=== PATIENT | female | born 1970 | race Caucasian/White ===

== ENCOUNTER 2017-06-02 08:30 | Emergency (ER) | payer MEDICAID ==
[~2017-06-02] VITALS: Ht 152.4 cm; Wt 45.9 kg
[~2017-06-02 08:30] MED LIST: EST1T PO; GABA-532 PO; HYDR-3686 PO; IBUP-1985 PO; LAMO100T2 PO; LORA0.5T PO; MIRT15TA PO; OLAN2.5T3 PO; PRAZ1CAP5 PO; VENL-191 PO
[2017-06-02 09:11] LABS: BASOPHILS % (AUTO) 0.4 % (0-1); EOSINOPHILS # (AUTO) 0.2 X10'3 (0-0.9); EOSINOPHILS % (AUTO) 2.8 % (0-6); HEMATOCRIT 40.6 % (35.0-45.0); HEMOGLOBIN 13.9 g/dl (12.0-16.0); LYMPHOCYTES % (AUTO) 24.6 % (21-51); MEAN CORPUSCULAR HGB CONC 34.3 % (33.0-36.5); MEAN CORPUSCULAR VOLUME 90.3 FL (78-98); MEAN PLATELET VOLUME 8.1 FL (7.4-10.4); MONOCYTES # (AUTO) 0.7 X10'3 (0-0.9); MONOCYTES % (AUTO) 8.3 % (2-12); NEUTROPHILS # (AUTO) 5.1 X10'3 (1.8-7.7); NEUTROPHILS % (AUTO) 63.9 % (42-75); PLATELET COUNT 286 X10'3 (140-440); RED BLOOD COUNT 4.49 X10'6 (4.20-5.60); WHITE BLOOD COUNT 8.1 X10'3 (4.5-11.0)
[2017-06-02] MEDS ORDERED: pantoprazole 40mg Tablet.DR PO STA (09:14)
[2017-06-02] MEDS ORDERED: ondansetron 4mg rapidly disintigrating tab PO ONE (09:15)
[2017-06-02] MEDS ORDERED: diphenhydrAMINE 25mg capsule PO ONE (09:15)
[2017-06-02] MEDS ORDERED: mag hydrox/Alum hydrox/simeth 30ml oral suspension PO ONE (09:15)
[2017-06-02] MEDS ORDERED: LIDOcaine Viscous 15ml cup MM ONE (09:15)
[2017-06-02 09:20] LABS: PROTHROMBIN TIME 10.1 SECONDS (9.0-12.0)
[2017-06-02 09:27] LABS: ALANINE AMINOTRANSFERASE 27 U/L (12-78); ALBUMIN 3.7 G/DL (3.4-5.0); ALBUMIN/GLOBULIN RATIO 1.1 (1.1-1.5); ALKALINE PHOSPHATASE 71 IU/L (46-116); ANION GAP 9 (8-16); ASPARTATE AMINO TRANSFERASE 16 U/L (10-37); BILIRUBIN,TOTAL 0.3 MG/DL (0.1-1.0); BLOOD UREA NITROGEN 12 MG/DL (7-18); BUN/CREATININE RATIO 17.1 (6.6-38.0); CALCIUM 9.2 MG/DL (8.5-10.1); CHLORIDE 107 MMOL/L (99-107); GLUCOSE 86 MG/DL (70-104); POTASSIUM 3.4 MMOL/L (3.5-5.1); SODIUM 143 MMOL/L (135-145); TOTAL CARBON DIOXIDE 26.9 MMOL/L (24-32); TOTAL PROTEIN 7.1 G/DL (6.4-8.2); eGFR 90 ML/MIN
[2017-06-02] MEDS ORDERED: PANT-47 PO (09:31)
[2017-06-02] MEDS ORDERED: SUCR1TAB34 PO (09:31)
[2017-06-02 09:44] LABS: CLARITY,URINE SLIGHTLY CLOUDY (Clear); COLOR,URINE YELLOW (Yellow); GLUCOSE, URINE NEGATIVE (Neg); KETONES,URINE TRACE mg/dl (Neg); LEUKOCYTE ESTERASE ,URINE NEGATIVE (Neg); NITRITES, URINE NEGATIVE (Neg); OCCULT BLOOD,URINE TRACE-INTACT (Neg); PROTEIN,URINE NEGATIVE (Neg)
[2017-06-02 09:53] LABS: UA COLLECTION TYPE CLN CATCH MIDSTREAM
[2017-06-02 09:55] LABS: BACTERIA,URINE FEW /HPF (Neg); MUCUS STRANDS FEW /LPF (Neg); RBC,URINE 0-2 /HPF (0-2); SQUAMOUS EPITHELIAL CELL,UR MANY /LPF (FEW); WBC,URINE 0-4 /HPF (0-4)
[2017-06-02 10:10] VITALS: BP 115/61
== END 2017-06-02 10:20 | disposition home or self-care (01) ==
LOC: ER 08:32
DX: R10.13 Epigastric pain (principal); F12.10 Cannabis abuse, uncomplicated; F15.10 Other stimulant abuse, uncomplicated; Z90.710 Acquired absence of both cervix and uterus; Z56.0 Unemployment, unspecified; Z79.899 Other long term (current) drug therapy
CPT/HCPCS: 36415; 80053; 81001; 85025; 85610; 99284; Q0163; 99283

== ENCOUNTER 2018-12-19 16:13 | Emergency (ER) | payer MEDICAID ==
[~2018-12-19] VITALS: Ht 152.4 cm; Wt 44.5 kg
[~2018-12-19 16:13] MED LIST changes: +PANT-47 PO; +SUCR1TAB34 PO
[2018-12-19] MEDS ORDERED: ketorolac trometh. 30mg/ml inj. IV ONE (16:40)
[2018-12-19] MEDS ORDERED: orphenadrine citrate 60mg/2ml inj. IM ONE (16:40)
[2018-12-19] MEDS ORDERED: IBUP-1985 PO (16:47)
[2018-12-19] MEDS ORDERED: METH-360 PO (16:47)
[2018-12-19 17:07] VITALS: BP 110/59
== END 2018-12-19 17:12 | disposition home or self-care (01) ==
LOC: ER 16:15
DX: M54.41 Lumbago with sciatica, right side (principal); F12.90 Cannabis use, unspecified, uncomplicated; F15.90 Other stimulant use, unspecified, uncomplicated; Z90.710 Acquired absence of both cervix and uterus; Z85.41 Personal history of malignant neoplasm of cervix uteri; Z56.0 Unemployment, unspecified; Z79.899 Other long term (current) drug therapy
CPT/HCPCS: 96372; 96374; 99283; J1885; J2360

== ENCOUNTER 2019-02-27 16:21 | Emergency (ER) | payer MEDICAID ==
[~2019-02-27] VITALS: Ht 152.4 cm; Wt 43.0 kg
[~2019-02-27 16:21] MED LIST changes: +METH-360 PO
[2019-02-27 16:51] VITALS: BP 130/81
--- NOTE | 2019-02-27 17:19 | NUR ---
GAVE PT WARM BLANKET, WAITING TO BE EVALUATED
[2019-02-27] MEDS ORDERED: ondansetron 4mg rapidly disintigrating tab PO ONE (18:20)
[2019-02-27] MEDS ORDERED: ketorolac trometh inj. 60 MG/2 ML VIAL IM ONE (18:20)
--- NOTE | 2019-02-27 18:28 | NUR ---
UA SENT TO LAB
[2019-02-27] MEDS ORDERED: ketorolac trometh. 30mg/ml inj. IM ONE (18:30)
[2019-02-27 18:40] LABS: CLARITY,URINE CLOUDY (Clear); COLOR,URINE YELLOW (Yellow); GLUCOSE, URINE NEGATIVE (Neg); KETONES,URINE NEGATIVE (Neg); LEUKOCYTE ESTERASE ,URINE NEGATIVE (Neg); NITRITES, URINE NEGATIVE (Neg); OCCULT BLOOD,URINE TRACE-INTACT (Neg); PH,URINE 6.5 (4.8-8.0); PROTEIN,URINE NEGATIVE (Neg); UROBILINOGEN,URINE 0.2 E.U/dL (0.2-1.0)
[2019-02-27 18:43] LABS: UA COLLECTION TYPE CLN CATCH MIDSTREAM
[2019-02-27 18:57] LABS: WBC,URINE 0-4 /HPF (0-4)
[2019-02-27 18:58] LABS: AMORPHOUS PHOSPHATES 4+; BACTERIA,URINE FEW /HPF (Neg); HYALINE CASTS 0-3 /LPF (NEGATIVE); MUCUS STRANDS MODERATE /LPF (Neg); SQUAMOUS EPITHELIAL CELL,UR FEW /LPF (FEW)
[2019-02-27 19:03] LABS: URINE AMPHETAMINE SCREEN POSITIVE (Neg); URINE CANNABINOID SCREEN NEGATIVE (Neg); URINE COCAINE SCREEN NEGATIVE (Neg); URINE METHADONE SCREEN NEGATIVE (Neg); URINE PHENCYCLIDINE SCREEN NEGATIVE (Neg)
--- NOTE | 2019-02-27 19:17 | NUR ---
PT BACK FROM CT, "I DON'T WANT TO STAY HERE FOR ANOTHER HOUR", RECOMMENDED PT STAY FOR CT RESULTS
[2019-02-27 19:30] LABS: URINE BARBITUATE SCREEN NEGATIVE (Neg); URINE BENZODIAZEPINES SCREEN NEGATIVE (Neg); URINE OPIATE SCREEN NEGATIVE (Neg)
[2019-02-27] MEDS ORDERED: CYCL-394 PO (20:13)
[2019-02-27] MEDS ORDERED: IBUP-1984 PO (20:13)
== END 2019-02-27 20:21 | disposition home or self-care (01) ==
LOC: ER 16:21
DX: M54.5 Low back pain (principal); M25.561 Pain in right knee; R51 Headache; M54.2 Cervicalgia; M19.90 Unspecified osteoarthritis, unspecified site; F12.90 Cannabis use, unspecified, uncomplicated; F15.90 Other stimulant use, unspecified, uncomplicated; Z90.710 Acquired absence of both cervix and uterus; Z56.0 Unemployment, unspecified; Z79.899 Other long term (current) drug therapy
CPT/HCPCS: 72128; 80305; 81001; 96372; 99284; J1885

== ENCOUNTER 2021-11-17 13:15 | Emergency (ER) | payer MEDICAID ==
[~2021-11-17] VITALS: Ht 152.4 cm; Wt 59.1 kg
[~2021-11-17 13:15] MED LIST changes: +CYCL-394 PO; +MIRT-116 PO; -MIRT15TA PO
[2021-11-17 14:08] VITALS: BP 139/61
[2021-11-17 14:33] LABS: BASOPHILS # (AUTO) 0.1 X10'3 (0-0.2); BASOPHILS % (AUTO) 0.5 % (0-1); EOSINOPHILS # (AUTO) 0.2 X10'3 (0-0.9); EOSINOPHILS % (AUTO) 1.6 % (0-6); HEMOGLOBIN 14.4 g/dl (12.0-16.0); LYMPHOCYTES # (AUTO) 2.4 X10'3 (1.1-4.8); LYMPHOCYTES % (AUTO) 22.5 % (21-51); MEAN CORPUSCULAR HEMOGLOBIN 29.4 PG (27.0-31.0); MEAN CORPUSCULAR HGB CONC 34.3 g/dL (33.0-36.5); MEAN CORPUSCULAR VOLUME 85.8 FL (78-98); MEAN PLATELET VOLUME 8.7 FL (7.4-10.4); MONOCYTES # (AUTO) 0.7 X10'3 (0-0.9); NEUTROPHILS # (AUTO) 7.2 X10'3 (1.8-7.7); NEUTROPHILS % (AUTO) 68.4 % (42-75); PLATELET COUNT 355 X10'3 (140-440); WHITE BLOOD COUNT 10.6 X10'3 (4.5-11.0)
[2021-11-17 14:42] LABS: CLARITY,URINE SLIGHTLY CLOUDY (Clear); COLOR,URINE YELLOW (Yellow); GLUCOSE, URINE NEGATIVE (Neg); KETONES,URINE NEGATIVE (Neg); LEUKOCYTE ESTERASE ,URINE NEGATIVE (Neg); NITRITES, URINE NEGATIVE (Neg); OCCULT BLOOD,URINE SMALL (Neg); PH,URINE 6.5 (4.8-8.0); PROTEIN,URINE NEGATIVE (Neg)
[2021-11-17 14:43] LABS: URINE HCG NEGATIVE (NEG)
[2021-11-17 14:47] LABS: UA COLLECTION TYPE CLN CATCH MIDSTREAM
[2021-11-17 14:48] LABS: ALANINE AMINOTRANSFERASE 47 U/L (12-78); ALBUMIN 3.5 G/DL (3.4-5.0); ALBUMIN/GLOBULIN RATIO 0.8 (1.1-1.5); ALKALINE PHOSPHATASE 92 IU/L (46-116); ANION GAP 9 (8-16); ASPARTATE AMINO TRANSFERASE 32 U/L (10-37); BILIRUBIN,TOTAL 0.4 MG/DL (0.1-1.0); BLOOD UREA NITROGEN 9 MG/DL (7-18); BUN/CREATININE RATIO 9.3 (6.6-38.0); CALCIUM 9.6 MG/DL (8.5-10.1); CHLORIDE 105 MMOL/L (99-107); CREATININE 0.97 MG/DL (0.40-0.90); GLUCOSE 91 MG/DL (70-104); LIPASE 55 U/L (73-393); POTASSIUM 3.7 MMOL/L (3.5-5.1); SODIUM 139 MMOL/L (135-145); TOTAL CARBON DIOXIDE 25.1 MMOL/L (24-32); TOTAL PROTEIN 7.9 G/DL (6.4-8.2); eGFR 61 ML/MIN
[2021-11-17 14:49] LABS: BACTERIA,URINE FEW /HPF (Neg); SQUAMOUS EPITHELIAL CELL,UR FEW /LPF (FEW); WBC,URINE 0-4 /HPF (0-4)
== END 2021-11-17 18:15 | disposition left against medical advice (07) ==
LOC: ER 13:16
DX: N20.0 Calculus of kidney (principal); Z53.21 Procedure and treatment not carried out due to patient leaving prior to being seen by health care provider
CPT/HCPCS: 36415; 80053; 81001; 81025; 83690; 84145; 85025

== ENCOUNTER 2023-10-01 14:42 | Inpatient (IN) | payer MEDICAID ==
[~2023-10-01] VITALS: Ht 152.4 cm; Wt 55.8 kg
[~2023-10-01 14:42] MED LIST changes: -MIRT-116 PO; +MIRT-142 PO
[2023-10-01 15:44] LABS: BASOPHILS % (AUTO) 0.4 % (0-1); EOSINOPHILS # (AUTO) 0.1 X10'3 (0-0.9); EOSINOPHILS % (AUTO) 1.5 % (0-6); HEMATOCRIT 40.9 % (35.0-45.0); MEAN CORPUSCULAR HEMOGLOBIN 31.2 PG (27.0-31.0); MEAN CORPUSCULAR HGB CONC 34.3 g/dL (33.0-36.5); MEAN CORPUSCULAR VOLUME 90.9 FL (78-98); MONOCYTES # (AUTO) 0.8 X10'3 (0-0.9); MONOCYTES % (AUTO) 8.1 % (2-12); NEUTROPHILS # (AUTO) 5.5 X10'3 (1.8-7.7); PLATELET COUNT 352 X10'3 (140-440); RED CELL DISTRIBUTION WIDTH 13.2 % (11.5-14.5); WHITE BLOOD COUNT 9.4 X10'3 (4.5-11.0)
[2023-10-01 16:03] LABS: ALBUMIN 4.2 G/DL (3.4-5.0); ANION GAP 11 (8-16); BLOOD UREA NITROGEN 6 MG/DL (7-18); BUN/CREATININE RATIO 9.5 (10.0-20.0); CALCIUM 9.7 MG/DL (8.5-10.1); CHLORIDE 110 MMOL/L (99-107); CREATININE 0.63 MG/DL (0.40-0.90); GLUCOSE 100 MG/DL (70-104); POTASSIUM 3.5 MMOL/L (3.5-5.1); PRO BRAIN NATRIURETIC PEPTIDE 158 PG/ML (0-125); SODIUM 143 MMOL/L (135-145); TOTAL CARBON DIOXIDE 22.1 MMOL/L (24-32); eCRCL 75 ML/MIN; eGFR > 90 ML/MIN
[2023-10-01] MEDS: metoclopramide 5 mg/ml inj IV ONE (19:02)
[2023-10-01] MEDS: acetaminophen 1,000mg/100ml IV 100 ML IV STA (19:02)
[2023-10-01] MEDS: diphenhydrAMINE 50 mg/ml inj IV ONE (19:04)
[2023-10-01] MEDS ORDERED: mag hydrox/Alum hydrox/simeth 30ml oral suspension PO PRN (20:40)
[2023-10-01] MEDS ORDERED: magnesium 4gm in 100ml NS 100 ML IV PRN (20:40)
[2023-10-01] MEDS ORDERED: potassium Cl 20 mEq SR tablet PO PRN (20:40)
[2023-10-01] MEDS ORDERED: magnesium hydroxide 30ml (MOM) UD suspension PO PRN (20:40)
[2023-10-01] MEDS ORDERED: magnesium 2GM in 50ml NS 50 ML IV PRN (20:40)
[2023-10-01] MEDS ORDERED: ondansetron/PF 4mg/2ml inj IV PRN (20:40)
[2023-10-01] MEDS ORDERED: HYDROcodone/acetaminophen 5mg/325mg tablet PO PRN (20:40)
[2023-10-01] MEDS ORDERED: acetaminophen 325mg tablet PO PRN (20:40)
[2023-10-01] MEDS ORDERED: magnesium Cl slow-release 64mg tablet PO PRN (20:40)
[2023-10-01] MEDS ORDERED: potassium Cl 40MEQ/1/2NS 520ml 520 ML IV PRN (20:40)
[2023-10-01] MEDS: celeCOXIB 100mg capsule PO SCH (21:59)
[2023-10-01] MEDS ORDERED: ipratropium/albuterol 3ml nebule NEB PRN (22:50)
[2023-10-01] MEDS ORDERED: nitroGLYCERIN 0.4mg SUBLingual tab SL PRN (22:50)
[2023-10-01] MEDS ORDERED: aminophylline 250mg/10ml inj. IV PRN (22:50)
[2023-10-01] MEDS ORDERED: metoprolol tartrate 1mg/ml inj IV PRN (22:50)
[2023-10-01 23:13] VITALS: BP 117/65; PULSE 86; RESP 19; TEMP 97.5; O2SAT 98
[2023-10-01 23:17] VITALS: PULSE 86; RESP 18; O2SAT 99
[2023-10-01 23:44] VITALS: RESP 19; O2SAT 98
[2023-10-02] VITALS (11 sets, daily range): BP systolic 112–128; BP diastolic 58–80; PULSE 69–96; RESP 14–22; TEMP 97.5–98.6; O2SAT 16–100
[2023-10-02] MEDS ORDERED: LORazepam 0.5 MG tablet PO PRN (01:20)
[2023-10-02] MEDS ORDERED: hydrOXYzine 25 MG tablet PO PRN (01:20)
[2023-10-02] MEDS ORDERED: AZEL137S4 BOTHNARES (03:09)
[2023-10-02] MEDS ORDERED: MEGE400O7 PO (03:09)
[2023-10-02] MEDS ORDERED: FLUT1BLS16 PO (03:09)
[2023-10-02] MEDS ORDERED: OLAN5TAB75 PO (03:09)
[2023-10-02] MEDS ORDERED: BENZ1TAB78 PO (03:09)
[2023-10-02] MEDS ORDERED: MECL-302 PO (03:09)
[2023-10-02] MEDS ORDERED: PROG200C11 PO (03:09)
[2023-10-02] MEDS ORDERED: LAMO200T51 PO (03:09)
[2023-10-02] MEDS ORDERED: PARO20TA6 PO (03:09)
[2023-10-02] MEDS ORDERED: PROM12.512 PO (03:09)
[2023-10-02] MEDS ORDERED: TRAM50TA2 PO (03:09)
[2023-10-02] MEDS ORDERED: PROM12.510 PO (03:11)
[2023-10-02] MEDS ORDERED: proMETHazine 25mg tablet PO PRN (07:40)
[2023-10-02] MEDS ORDERED: meclizine 12.5mg tablet PO PRN (07:40)
[2023-10-02] MEDS: enoxaparin 40mg/0.4ml syringe SUBCUT SCH (08:00)
[2023-10-02] MEDS: K and/or MAG REPLACEMENT MC SCH (08:00)
[2023-10-02] MEDS ORDERED: lamoTRIgine 100mg tablet PO SCH (08:00)
[2023-10-02] MEDS ORDERED: METHOCARBAMOL PO SCH (08:00)
[2023-10-02] MEDS ORDERED: estradiol 1mg tablet PO SCH (08:00)
[2023-10-02] MEDS ORDERED: gabapentin 300mg capsule PO SCH (08:00)
[2023-10-02] MEDS ORDERED: venlafaxine 37.5mg tablet PO SCH (08:00)
[2023-10-02] MEDS: PARoxetine 20mg tablet PO SCH (08:00)
[2023-10-02] MEDS: LAMOTRIGINE 200 MG PO SCH (08:00)
[2023-10-02 08:07] LABS: BASOPHILS % (AUTO) 0.5 % (0-1); EOSINOPHILS # (AUTO) 0.1 X10'3 (0-0.9); EOSINOPHILS % (AUTO) 2.2 % (0-6); HEMOGLOBIN 12.7 g/dl (12.0-16.0); LYMPHOCYTES # (AUTO) 2.8 X10'3 (1.1-4.8); LYMPHOCYTES % (AUTO) 40.2 % (21-51); MEAN CORPUSCULAR HEMOGLOBIN 31.5 PG (27.0-31.0); MEAN CORPUSCULAR HGB CONC 35.2 g/dL (33.0-36.5); MEAN CORPUSCULAR VOLUME 89.4 FL (78-98); MONOCYTES # (AUTO) 0.7 X10'3 (0-0.9); MONOCYTES % (AUTO) 9.4 % (2-12); NEUTROPHILS # (AUTO) 3.3 X10'3 (1.8-7.7); NEUTROPHILS % (AUTO) 47.7 % (42-75); PLATELET COUNT 315 X10'3 (140-440); RED BLOOD COUNT 4.03 X10'6 (4.20-5.60); RED CELL DISTRIBUTION WIDTH 13.3 % (11.5-14.5); WHITE BLOOD COUNT 6.9 X10'3 (4.5-11.0)
[2023-10-02 08:31] LABS: ALBUMIN 3.7 G/DL (3.4-5.0); ANION GAP 11 (8-16); BLOOD UREA NITROGEN 8 MG/DL (7-18); BUN/CREATININE RATIO 12.5 (10.0-20.0); CALCIUM 9.4 MG/DL (8.5-10.1); CHLORIDE 109 MMOL/L (99-107); CHOLESTEROL 180 MG/DL (0-200); CREATININE 0.64 MG/DL (0.40-0.90); GLUCOSE 80 MG/DL (70-104); HDL CHOLESTEROL 45 MG/DL (35-60); LDL CHOLESTEROL 114 MG/DL (50-100); POTASSIUM 3.3 MMOL/L (3.5-5.1); SODIUM 141 MMOL/L (135-145); TOTAL CARBON DIOXIDE 20.9 MMOL/L (24-32); TRIGLYCERIDES 66 MG/DL (20-135); eCRCL 74 ML/MIN; eGFR > 90 ML/MIN
[2023-10-02] MEDS: regadenoson 0.4mg/5ml syringe IV PRN (08:56)
[2023-10-02] MEDS: aspirin 81mg tab.chew PO SCH (10:19)
[2023-10-02] MEDS: pantoprazole 40mg Tablet.DR PO SCH (10:19)
[2023-10-02] MEDS: potassium Cl 20 mEq SR tablet PO PRN (10:19)
[2023-10-02] MEDS ORDERED: CELE-148 PO (10:59)
[2023-10-02] MEDS ORDERED: olanzapine 10mg tablet PO SCH (21:00)
[2023-10-02] MEDS ORDERED: mirtazapine 15mg tablet PO SCH (21:00)
[2023-10-02] MEDS ORDERED: prazosin 1mg capsule PO SCH (21:00)
[2023-10-02] MEDS ORDERED: benztropine 1mg tablet PO SCH (21:00)
[2023-10-02] MEDS ORDERED: OLANZAPINE 5 MG TABLET PO SCH (21:00)
== END 2023-10-02 11:35 | disposition home or self-care (01) | DRG 203 ==
LOC: ER 14:42 → UNDOADMOB 20:37 → ED HOLD 20:37 → OBSVTOIN 20:44 → ED HOLD 20:44 → PCU 3S 23:08 → ED HOLD 23:08
PROVIDERS: ADMIT Surgery Surgical Critical Care; ATTEND Internal Medicine
PROC: 4A02XM4 Measurement of Cardiac Total Activity, External Approach (ICD-10-PCS; principal; 2023-10-02)
PROC: 3E033HZ Introduction of Radioactive Substance into Peripheral Vein, Percutaneous Approach (ICD-10-PCS; 2023-10-02)
DX: M94.0 Chondrocostal junction syndrome [Tietze] (principal); F19.90 Other psychoactive substance use, unspecified, uncomplicated; F31.9 Bipolar disorder, unspecified; F41.0 Panic disorder [episodic paroxysmal anxiety]; J44.9 Chronic obstructive pulmonary disease, unspecified; Z85.41 Personal history of malignant neoplasm of cervix uteri; Z86.73 Personal history of transient ischemic attack (TIA), and cerebral infarction without residual deficits; Z90.710 Acquired absence of both cervix and uterus; Z56.0 Unemployment, unspecified; Z87.891 Personal history of nicotine dependence
CPT/HCPCS: 36415; 71045; 78452; 80048; 80061; 82948; 83036; 83880; 84484; 85025; 87081; 93005; 93017; 93306; 94760; 99285; A9500; G0378; J0131; J1200; J2765; J2785

== ENCOUNTER 2023-10-07 09:13 | Outpatient (CLI) | payer MEDICAID ==
[~2023-10-07 09:13] MED LIST changes: +AZEL137S4 BOTHNARES; +BENZ1TAB78 PO; +CELE-148 PO; -CYCL-394 PO; -EST1T PO; +FLUT1BLS16 PO; -GABA-532 PO; -HYDR-3686 PO; -IBUP-1985 PO; -LAMO100T2 PO; +LAMO200T51 PO; -LORA0.5T PO; +MECL-302 PO; +MEGE400O7 PO; -METH-360 PO; -MIRT-142 PO; -OLAN2.5T3 PO; +OLAN5TAB75 PO; +PARO20TA6 PO; -PRAZ1CAP5 PO; +PROG200C11 PO; +PROM12.510 PO; -SUCR1TAB34 PO; +TRAM50TA2 PO; -VENL-191 PO
[2023-10-07] MEDS ORDERED: iohexol 300mg/ml 100ml inj. ONE (09:51)
== END 2023-10-07 23:59 | disposition home or self-care (01) ==
LOC: RAD 09:13
PROVIDERS: ATTEND Family Medicine
DX: S09.90XD Unspecified injury of head, subsequent encounter (principal); R51.9 Headache, unspecified; R41.3 Other amnesia; G43.909 Migraine, unspecified, not intractable, without status migrainosus; X58.XXXD Exposure to other specified factors, subsequent encounter
CPT/HCPCS: 70470; J3490; Q9967

== ENCOUNTER 2024-10-01 09:10 | Day surgery (SDC) | payer MEDICAID ==
[~2024-10-01] VITALS: Ht 152.4 cm; Wt 62.3 kg
[~2024-10-01 09:10] MED LIST changes: +BUSP15TA12; +FEZO45TA; +LINA290C PO; +MEGE400O40 PO; -MEGE400O7 PO; +POLY119P3 PO; +TIZA-189 PO; +TRAZ-251 PO
[2024-10-01 09:30] VITALS: BP 134/93; PULSE 77; RESP 23
[2024-10-01 11:18] VITALS: BP 151/51; PULSE 70; RESP 12; O2SAT 98
[2024-10-01 11:28] VITALS: BP 152/50; PULSE 66; RESP 16; O2SAT 100
[2024-10-01] MEDS ORDERED: propofol inj 20 ML IV ONE ×2 (11:28)
[2024-10-01] MEDS ORDERED: ringers solution, lactated 1000ml IV soln IV ONE (11:28)
[2024-10-01] MEDS ORDERED: LIDOcaine 1%/PF 5ML 10 MG/ML VIAL ONE (11:28)
[2024-10-01 11:38] VITALS: BP 134/74; PULSE 62; RESP 16; O2SAT 100
[2024-10-01 11:48] VITALS: BP 143/70; PULSE 65; RESP 16; O2SAT 100
[2024-10-02] MEDS ORDERED: ringers solution, lactated 1000ml IV soln IV ONE (10:40)
--- NOTE | 2024-10-02 14:25 | PATHOLOGY REPORT ---
[facility] [address] [place] [address] SURGICAL PATHOLOGY REPORT CaseNumber: [id number] Surgeon:Lucio Whitehead M.D. CLINICAL INFORMATION CLINICAL INFORMATION: Epigastric abdominal pain, functional dyspepsia. DIAGNOSIS DIAGNOSIS: A.GASTRIC ANTRUM, BIOPSY - NO SIGNIFICANT INFLAMMATION, EDEMA, OR VASCULAR CONGESTION - NO INTESTINAL METAPLASIA BY PAS STAINING - NO DYSPLASIA OR MALIGNANCY - NO H. PYLORI ORGANISMS ARE HIGHLIGHTED BY IMMUNOHISTOCHEMISTRY DIAGNOSIS: B.POLYP, RECTUM, BIOPSY - BENIGN HYPERPLASTIC POLYP MICROSCOPIC DESCRIPTION A. GASTRIC ANTRUM, BIOPSY MICROSCOPIC DESCRIPTION: Reviewed is a single H&E-stained slide showing serial sections and levels of a single fragment of gastric antral type mucosa. There is no significant inflammation, edema, or vas cular congestion. There is no intestinal metaplasia by PAS staining. There are no dysplastic or neopl astic features. Also, no H. pylori organisms are highlighted by immunohistochemistry. B. POLYP, RECTUM, BIOPSY MICROSCOPIC DESCRIPTION: Reviewed is a single H&E-stained slide showing serial sections and levels of a single polypoid fragment of colonic mucosa. There are areas involved by hyperplastic changes. Ther e are no dysplastic or neoplastic features. GROSS DESCRIPTION A. GASTRIC ANTRUM, BIOPSY GROSS DESCRIPTION: Received in a container of formalin labeled with the patients name, number, and "a ntrum BX" is a 0.3 cm piece of ocasio tissue. The specimen is entirely submitted as A1. The time at whic h the specimen was removed was 1042. The time at which the specimen was placed in formalin was 1042. B. POLYP, RECTUM, BIOPSY GROSS DESCRIPTION: Received in a container of formalin labeled with the patients name, number, and "r ectal polyp" is a 0.3 cm polypoid piece of ocasio tissue. The specimen is entirely submitted as B1. The time at which the specimen was removed was 1106. The time at which the specimen was placed in formal in was 1107. Electronically signed by: Reilly Hilton M.D. 10/02/2024 1:58:00 PM
== END 2024-10-01 12:00 | disposition home or self-care (01) ==
LOC: GI LAB 09:10
PROVIDERS: ATTEND Internal Medicine Gastroenterology
DX: R19.4 Change in bowel habit (principal); K62.1 Rectal polyp; K31.89 Other diseases of stomach and duodenum; K30 Functional dyspepsia; Z86.73 Personal history of transient ischemic attack (TIA), and cerebral infarction without residual deficits; Z79.899 Other long term (current) drug therapy; J44.9 Chronic obstructive pulmonary disease, unspecified
CPT/HCPCS: 43239; 45385; J2704; J3490; J7030; J7120; Z7512; A4620; C1889